=== PATIENT | female | born 1975 | race Caucasian/White ===

== ENCOUNTER 2017-09-06 16:36 | Emergency (ER) | payer OTHER ==
[2017-09-06 17:32] LABS: BASOPHILS 0.6 % (0-2); EOSINOPHILS 1.9 % (0-7); HEMATOCRIT 41.8 % (36.0-48.0); HEMOGLOBIN 13.7 g/dL (12-16); IMMATURE GRANULOCYTES 0.1 % (0-5); LYMPHOCYTES 28.1 % (15-50); MCH 27.8 pg (26.0-34.0); MCHC 32.8 g/dL (31.0-37.0); MEAN PLATELET VOLUME 8.9 fL (7.4-10.4); MONOCYTES 5.4 % (2-11); NEUTROPHILS 63.9 % (40-80); PLATELET COUNT 318 10x3/uL (130-400); RBC 4.92 10x6/uL (4.00-5.40); RDW 15.4 % (11.5-14.5); WBC 8.5 10x3/uL (4.8-10.8)
[2017-09-06 17:51] LABS: HCG SERUM NEGATIVE (NEGATIVE)
== END 2017-09-06 21:20 | disposition home or self-care (01) ==
LOC: D.ER 16:36
PROVIDERS: Family Medicine
DX: N93.8 Other specified abnormal uterine and vaginal bleeding (principal)

== ENCOUNTER → 2020-02-04 | Emergency (ER) | payer SELFPAY ==
[~2020-02-04] VITALS: Ht 154.9 cm; Wt 63.6 kg
[~2020-02-04] MED LIST: TORADOL10 MG PO
[2020-02-04 19:09] VITALS: Ht 154.9 cm; Wt 63.6 kg
[2020-02-04 20:04] VITALS: BP 121/88
== END | disposition home or self-care (01) ==
LOC: D.ER 19:03
DX: S60.222A Contusion of left hand, initial encounter (principal); W22.8XXA Striking against or struck by other objects, initial encounter; Y93.9 Activity, unspecified; Y92.9 Unspecified place or not applicable